=== PATIENT | female | born 1950 | race Caucasian/White ===

== ENCOUNTER 2021-07-22 15:08 | Observation (INO) ==
[2021-07-22] MEDS ORDERED: SODIUM CHLORIDE 0.9% 1,000 ML IV STA (16:36)
[2021-07-22 17:12] LABS: Basophils # 0.1 10*3/uL (0.0-0.2); Basophils % 0.7 % (0.0-0.8); Eosinophils # 0.6 10*3/uL (0.0-0.87); Eosinophils % 6.3 % (0.00-10.9); Hematocrit 44.9 VOL% (35.7-47.0); Hemoglobin 14.9 GM/DL (12.0-16.0); Immature Granulocytes % 0.2 %; Immature Granulocytes Absolute 0.02 #; Lymphocytes # 3.3 10*3/uL (1.4-4.0); Mean Corpuscular HGB Conc 33.2 GM/DL (32-36); Mean Corpuscular Volume 91.1 FL (87-102); Mean Platelet Volume 11.1 FL (9.6-12.0); Neutrophils % 40.8 % (38.7-73.9); Platelet Count 214 T/CUMM (130-400); Red Blood Count 4.93 MC/CUMM (3.8-5.5); White Blood Count 8.7 T/CUMM (4-12)
[2021-07-22 17:31] LABS: Albumin 3.7 G/DL (3.4-5.0); Bilirubin,Total 0.6 MG/DL (0.20-1.00); Calcium 9.9 MG/DL (8.5-10.1); Osmolality,Calculated 279.3 MOS/KG (273-304); Potassium 3.5 MMOL/L (3.5-5.1); Total Protein 7.7 G/DL (6.4-8.2)
[2021-07-23] MEDS ORDERED: ONDANSETRON 4 MG/2 ML VIAL IV PRN (01:06)
[2021-07-23] MEDS ORDERED: GLUCAGON 1 MG VIAL IM PRN (01:06)
[2021-07-23] MEDS ORDERED: hydrALAZINE 20 MG/1 ML VIAL IV PRN (01:06)
[2021-07-23] MEDS ORDERED: DEXTROSE 10% 250 ML BAG IV PRN (01:06)
[2021-07-23] MEDS ORDERED: MORPHINE 2 MG/1 ML SYRINGE IV PRN (01:06)
[2021-07-23] MEDS: ACETAMINOPHEN 325 MG TABLET PO PRN ×3 (02:09→13:37)
[2021-07-23 05:58] LABS: Basophils # 0.1 10*3/uL (0.0-0.2); Basophils % 0.7 % (0.0-0.8); Eosinophils # 0.6 10*3/uL (0.0-0.87); Eosinophils % 6.5 % (0.00-10.9); Hematocrit 42.5 VOL% (35.7-47.0); Immature Granulocytes % 0.2 %; Immature Granulocytes Absolute 0.02 #; Lymphocytes # 4.1 10*3/uL (1.4-4.0); Lymphocytes % 47.8 % (21.3-54.2); Mean Corpuscular HGB Conc 32.9 GM/DL (32-36); Mean Corpuscular Volume 91.6 FL (87-102); Mean Platelet Volume 11.1 FL (9.6-12.0); Monocytes % 13.7 % (1.7-12.7); Neutrophils % 31.1 % (38.7-73.9); Platelet Count 208 T/CUMM (130-400); Red Blood Count 4.64 MC/CUMM (3.8-5.5); White Blood Count 8.5 T/CUMM (4-12)
[2021-07-23 06:12] LABS: Calcium 9.6 MG/DL (8.5-10.1); Osmolality,Calculated 279.3 MOS/KG (273-304); Potassium 4.3 MMOL/L (3.5-5.1)
[2021-07-23 06:22] LABS: Eosinophils 12 % (0-10); Lymphocytes 38 % (20-55); Segmented Neutrophils 39 % (50-85); Total Cells Counted 100
[2021-07-23 06:23] LABS: Microcytosis 1+; Platelet Estimate Normal
[2021-07-23 06:24] LABS: Atypical Lymphocytes Few
[2021-07-23] MEDS ORDERED: INFLUENZA VIRUS VACCINE 0.5 ML SYRINGE IM ONE (09:00)
[2021-07-23] MEDS ORDERED: ENOXAPARIN 40 MG/0.4 ML SYRINGE SUBCUT SCH (09:00)
[2021-07-23] MEDS ORDERED: CETIRIZINE 10 MG TABLET PO SCH (09:00)
[2021-07-23] MEDS ORDERED: PANTOPRAZOLE 40 MG TABLET PO SCH (09:00)
[2021-07-23] MEDS ORDERED: ATORVASTATIN 20 MG TABLET PO SCH (09:00)
[2021-07-23] MEDS ORDERED: ASPIRIN EC 81 MG TABLET PO SCH (09:00)
[2021-07-23] MEDS ORDERED: LEVOFLOXACIN 500 MG TABLET PO SCH (10:00)
[2021-07-23] MEDS ORDERED: FLUTICASONE 50 MCG NASAL SPRAY 16 GM BOTTLE BOTH NARES SCH (10:00)
[2021-07-23 12:06] VITALS: BP 118/54
== END 2021-07-23 14:38 | disposition home or self-care (01) ==
LOC: EDUNIT# → EDBD → N.ED 15:08 → N.EDINP 15:08 → N.5E 23:24
PROVIDERS: ADMIT Internal Medicine; ATTEND Internal Medicine